=== PATIENT | male | born 1940 | race Caucasian/White ===

== ENCOUNTER 2019-07-14 00:41 | Inpatient (IN) ==
--- NOTE | 2019-07-01 08:18 | EKG Report ---
Test Performed on : 07/01/2019 08:03:10 AM Test Reason : PAT Blood Pressure : / mmHG Vent. Rate : 072 BPM Atrial Rate : 072 BPM P-R Int : 156 ms QRS Dur : 128 ms QT Int : 416 ms P-R-T Axes : 080 036 059 degrees QTc Int : 455 ms Sinus rhythm. with premature atrial complexes. Right bundle branch block Septal infarct , age undetermined Abnormal ECG When compared with ECG of 16-JUN-2015 10:09, premature atrial complexes. are now present Septal infarct is now present Confirmed by Stacia Metcalf MD ([id number]) on 07/01/2019 12:25:59 PM
[2019-07-01 08:37] LABS: URINE SOURCE CLEAN CATCH
[2019-07-01 09:03] LABS: BILIRUBIN URINE NEGATIVE (NEGATIVE); BLOOD URINE NEGATIVE (NEGATIVE); COLOR YELLOW; GLUCOSE URINE NEGATIVE (NEGATIVE); KETONE URINE NEGATIVE (NEGATIVE); LEUKOCYTES URINE NEGATIVE (NEGATIVE); NITRITE URINE NEGATIVE (NEGATIVE); PROTEIN URINE NEGATIVE (NEGATIVE); TURBIDITY URINE CLEAR (CLEAR); UROBILINOGEN URINE NORMAL (NORMAL)
[2019-07-01 09:05] LABS: BASO# 0.02 X1000 (0.0-0.2); BASO% 0.3 % (0.0-0.8); EOS# 0.12 X1000 (0.0-0.7); EOS% 1.6 % (0.0-10.0); HEMATOCRIT 44.2 % (42.0-52.0); HEMOGLOBIN 14.6 g/dL (14.0-18.0); LYMPH# 1.83 X1000 (1.2-3.4); LYMPH% 24.7 % (20.5-51.1); MCH 31.7 PG (27-31); MCV 95.9 FL (81-99); MONO# 0.42 X1000 (0.11-0.59); MONO% 5.7 % (1.7-9.3); MPV 10.8 FL (7.4-10.4); NEUT# 5.03 X1000 (1.4-6.5); NEUT% 67.7 % (42.2-75.2); PLT 167 X1000 (130-400); RBC 4.61 XMIL (4.7-6.1); RDW 12.4 % (11.5-14.5); WBC 7.42 X1000 (4.8-10.8)
[2019-07-01 09:06] LABS: UR EPITHELIAL CELLS <10 /HPF (<10); URINE BACTERIA NEGATIVE /HPF; URINE RBC <10 /HPF (<10); URINE WBC <10 /HPF (<10)
[2019-07-01 09:08] LABS: INR 0.98; PROTIME 13.1 Seconds (11.0-16.0)
[2019-07-01 09:09] LABS: PTT 31.3 Seconds (22.3-41.8)
[2019-07-01 09:20] LABS: AGAP 10; BUN 24 mg/dL (8-22); CALCIUM 9.5 mg/dL (8.8-10.2); CHLORIDE 100 mmol/L (98-107); COSMO 287; CREATININE 1.1 mg/dL (0.7-1.2); ESTIMATED GFR > 60; GLUCOSE 97 mg/dL (70-104); POTASSIUM 3.7 mmol/L (3.5-5.1); SODIUM 142 mmol/L (136-145); TCO2 32 mmol/L (25-35)
[2019-07-01 09:27] LABS: HEMOGLOBIN A1C 5.6 % (4.8-6.0)
[2019-07-14] MEDS ORDERED: PEPCID ONE (05:55)
[2019-07-14] MEDS ORDERED: COLACE ONE (05:55)
[2019-07-14] MEDS ORDERED: REGLAN ONE (05:55)
[2019-07-14] MEDS ORDERED: KEFZOL 1 GM/D5W 2 GM/100 ML IVPB ONE (05:56)
[2019-07-14] MEDS ORDERED: CELEBREX ONE (05:56)
[2019-07-14] MEDS ORDERED: LYRICA ONE (05:56)
[2019-07-14] MEDS ORDERED: LR 1,000 ML ONE (05:56)
[2019-07-14] MEDS ORDERED: DIPRIVAN 1% ONE (06:53)
[2019-07-14] MEDS ORDERED: XYLOCAINE-MPF 2% ONE (06:54)
[2019-07-14] MEDS ORDERED: ROBINUL ONE (06:54)
[2019-07-14] MEDS ORDERED: DURAMORPH ONE (07:02)
[2019-07-14] MEDS ORDERED: SODIUM CHLORIDE 0.9% ONE (07:02)
[2019-07-14] MEDS ORDERED: CYKLOKAPRON 1,000 MG/NS 1,000 MG/100 ML IVPB ONE (07:02)
[2019-07-14] MEDS ORDERED: MARCAINE 0.25% PF ONE (07:02)
[2019-07-14] MEDS ORDERED: TORADOL ONE ×2 (07:02→07:26)
[2019-07-14] MEDS ORDERED: NEOSPORIN G.U. IRRIGANT ONE (07:03)
[2019-07-14] MEDS ORDERED: EXPAREL 1.3% ONE (07:03)
[2019-07-14] MEDS ORDERED: OFIRMEV 1000 MG/ISOTONIC SOLN 1,000 MG/100 ML BOTTLE ONE (07:25)
[2019-07-14] MEDS ORDERED: KETAMINE ONE (07:25)
[2019-07-14] MEDS ORDERED: DECADRON ONE (07:25)
[2019-07-14] MEDS ORDERED: ZOFRAN ONE (07:26)
[2019-07-14] MEDS ORDERED: NEOSPORIN OINTMENT PACKET ONE (07:38)
[2019-07-14] MEDS ORDERED: VERSED ONE (08:05)
[2019-07-14] MEDS ORDERED: NS 1,000 ML ONE (09:11)
[2019-07-14 09:19] LABS: URINE SOURCE CATH
[2019-07-14 09:27] LABS: BILIRUBIN URINE NEGATIVE (NEGATIVE); BLOOD URINE NEGATIVE (NEGATIVE); COLOR YELLOW; GLUCOSE URINE NEGATIVE (NEGATIVE); KETONE URINE NEGATIVE (NEGATIVE); LEUKOCYTES URINE NEGATIVE (NEGATIVE); NITRITE URINE NEGATIVE (NEGATIVE); PH URINE 6.5; PROTEIN URINE TRACE mg/dL (NEGATIVE); SP GRAVITY URINE 1.018; TURBIDITY URINE CLEAR (CLEAR); UR EPITHELIAL CELLS >10 /HPF (<10); URINE BACTERIA NEGATIVE /HPF; URINE RBC <10 /HPF (<10); URINE WBC <10 /HPF (<10); UROBILINOGEN URINE NORMAL (NORMAL)
[2019-07-14] MEDS ORDERED: NS 1,000 ML IV SCH (10:00)
[2019-07-14] MEDS ORDERED: OXY IR PO PRN ×2 (10:00)
[2019-07-14] MEDS ORDERED: ZOFRAN ODT PO PRN (10:00)
[2019-07-14] MEDS ORDERED: MORPHINE IV PRN ×3 (10:00)
[2019-07-14] MEDS ORDERED: ZOFRAN IV PRN (10:00)
--- NOTE | 2019-07-14 10:09 | OPERATIVE NOTE ---
PROCEDURE DATE: 07/14/2019 PREOPERATIVE DIAGNOSIS: Degenerative joint disease left hip. POSTOPERATIVE DIAGNOSIS: Degenerative joint disease left hip. PROCEDURE PERFORMED: Left anterior hip replacement. SURGEON: Josi Lord MD. ASSISTANT SUPERINTENDENT: AYUSH Leroy. Mr. Jo was necessary for proper retraction and manipulation of the leg during the case. ANESTHESIA: Spinal. COMPLICATION: None. PROCEDURE IN DETAIL: A 78-year-old male presents for left hip replacement. Risks, benefits, and no guarantees were discussed and he is willing to proceed. He was taken to the operating room and satisfactory anesthesia obtained. He was placed on the [place] table and left hip prepped and draped in usual sterile fashion. A time-out was taken to confirm operative site, procedure, and patient. An anterior approach to the left hip was undertaken through a roughly 10 cm incision starting 1 cm distal and lateral to the anterior superior iliac spine and carried over the anterior thigh. Dissection was carried down through the skin to the fascia of the tensor fascia thi. The fascia of the tensor was released in line with the incision and blunt dissection along the inner membrane undertaken down to the anterior hip capsule. Cobra retractors were placed over the superior and inferior aspect of the femoral neck. A capsulotomy incision was made to expose the neck. The C-arm was used to make an AP pelvis to christine leg lengths prior to osteotomy of the femoral neck. Femoral neck osteotomy was made roughly 8 mm above the lesser trochanter and the femoral head removed. Sequential reaming of the acetabulum was undertaken. A small Cobra retractor was placed directly on acetabular bone to protect the femoral nerve with secure visibility on the bone only. The reamers were used to ream the acetabulum up to a 55 reamer. A DePuy [place] 56 outer diameter cup was impacted in the acetabulum in roughly 45 degrees of abduction and 15 degrees of anteversion with secure fixation. A 25 length screw was placed in the 12 o'clock position of the cup for additional security. A 36 mm inner diameter 0 degree polyethylene liner was then impacted into the cup. The liner cup interface and cup bone interface was checked and noted to be stable. The wound was then irrigated and traction released off the leg and the [place]ena table used to extend and externally rotate the hip to facilitate broaching of the proximal femur. Sequential broaching up to a size 5 DePuy active stem was undertaken with secure axial and rotational stability. The standard neck geometry 1.5 neck taper revealed good range of motion, stability and methodist of the leg lengths. The trial stem was removed and an active standard neck size 5 collared stem impacted into the proximal femur with secure axial and rotational stability. A 36 mm ceramic head with a 1.5 neck length was then undertaken and impacted onto the Muhammad taper. The hip was reduced. Final range of motion was assessed with no instability by externally rotating the leg up to 70 degrees and dropping the hip in extension to the floor. Afterwards, a posterior stability was checked by flexing the hip up and internally rotating it without any posterior instability. The wound was copiously irrigated with irrigant. The joint capsule was injected with Exparel for pain management and a Hemovac drain placed. The fascia of the tensor was closed with a running V-Loc suture, the subcutaneous with 2-0 Vicryl and the skin with skin eugene. Sterile dressings completed the closure. A drain was placed prior to complete closure for evacuation of any postop hematoma. He was then sterilely dressed and recovered from anesthesia and transferred to the recovery room in stable condition. No intraoperative complications were noted. Instrument count and sponge count was correct at the time of closure. cc: Augusto Lord MD
[2019-07-14] MEDS: ULTRAM PO SCH ×3 (11:09→21:37)
[2019-07-14] MEDS: TYLENOL PO SCH ×4 (11:09→21:37)
--- NOTE | 2019-07-14 15:13 | PROGRESS NOTE ---
DATE: 07/14/2019 Mr. Brady is seen status post total hip replacement. He is comfortable at the present time. His drain fell out while they were mobilizing him with therapy. There is no signs of active bleeding. He is doing well with therapy and already mobilized. He has good knee extension and flexion as well as ankle dorsi and plantar flexion. There is no focal motor or sensory deficits. Vital signs are stable. We will plan on continuing to mobilize him and discharge him when he is mobilizing independently. cc: Augusto Lord MD
[2019-07-14] MEDS ORDERED: CYKLOKAPRON 1,000 MG/NS 1,000 MG/100 ML IVPB IV ONE (16:00)
[2019-07-14] MEDS: KEFZOL 2 GM/D5W 2 GM/50 ML IVPB IV SCH (16:54)
[2019-07-14] MEDS ORDERED: DESYREL PO PRN (17:02)
[2019-07-14] MEDS ORDERED: MUCINEX PO PRN (17:02)
[2019-07-14] MEDS ORDERED: SYMBICORT 160/4.5 MICROGM INHALER INH PRN (17:02)
[2019-07-14] MEDS ORDERED: ZOCOR PO SCH (21:00)
[2019-07-14] MEDS ORDERED: CELEBREX PO SCH (21:00)
[2019-07-14] MEDS: NEURONTIN PO SCH (21:37)
[2019-07-14] MEDS: PERIDEX MT SCH (21:37)
[2019-07-14] MEDS: CELEBREX PO SCH (21:37)
[2019-07-14] MEDS: COLACE PO SCH (21:37)
[2019-07-15] MEDS ORDERED: KEFZOL 2 GM/D5W 2 GM/50 ML IVPB IV SCH (01:15)
[2019-07-15] MEDS: KEFZOL 2 GM/D5W 2 GM/50 ML IVPB IV SCH (01:41)
[2019-07-15 05:47] LABS: HEMATOCRIT 33.1 % (42.0-52.0); HEMOGLOBIN 11.1 g/dL (14.0-18.0)
[2019-07-15 06:05] LABS: CALCIUM 8.1 mg/dL (8.8-10.2); CREATININE 1.3 mg/dL (0.7-1.2); POTASSIUM 3.9 mmol/L (3.5-5.1)
--- NOTE | 2019-07-15 07:19 | ORTHOPAEDICS PROGRESS NOTE ---
DATE: 07/15/2019 Mr. Brady is seen today status post anterior hip replacement. He is afebrile with stable vital signs. He has been rather restless here in the hospital. He is alert and oriented x3 and pleasant. There are no signs of infection or DVT. Will plan on discharging him home today for outpatient followup and home health. He can return to our office in the interim for any worsening signs or symptoms. cc: Augusto Lord MD
[2019-07-15] MEDS: LOTENSIN PO SCH ×2 (07:58→08:28)
[2019-07-15] MEDS: LASIX PO SCH ×2 (07:58→08:27)
[2019-07-15] MEDS: KLOR-CON PO SCH ×2 (07:58→08:26)
[2019-07-15] MEDS: SINGULAIR PO SCH ×2 (07:58→08:27)
[2019-07-15] MEDS: TYLENOL PO SCH (07:59)
[2019-07-15] MEDS: NEURONTIN PO SCH (07:59)
[2019-07-15] MEDS: COLACE PO SCH (07:59)
[2019-07-15] MEDS: PERIDEX MT SCH (07:59)
[2019-07-15] MEDS: CELEBREX PO SCH (07:59)
[2019-07-15] MEDS: ULTRAM PO SCH (08:26)
[2019-07-15 08:41] VITALS: BP 108/54
[2019-07-15] MEDS ORDERED: PRILOSEC PO SCH (09:00)
[2019-07-15] MEDS ORDERED: PATIENT'S OWN MED PO SCH (09:00)
[2019-07-15] MEDS ORDERED: ASPIRIN PO SCH (09:00)
== END 2019-07-15 11:59 | disposition home health service (06) | DRG 470 ==
LOC: SURHOLD 00:41 → 4N 07:31
PROVIDERS: ADMIT Orthopaedic Surgery Adult Reconstructive Orthopaedic Surgery; ATTEND Orthopaedic Surgery Adult Reconstructive Orthopaedic Surgery

== ENCOUNTER 2019-07-20 13:39 | Inpatient (IN) ==
[2019-07-20] MEDS ORDERED: DILAUDID IV ONE (15:34)
[2019-07-20] MEDS ORDERED: ZOFRAN IV ONE (15:34)
[2019-07-20 15:46] LABS: BASO# 0.02 X1000 (0.0-0.2); BASO% 0.2 % (0.0-0.8); EOS# 0.33 X1000 (0.0-0.7); EOS% 3.6 % (0.0-10.0); HEMATOCRIT 32.7 % (42.0-52.0); IMM GRAN# 0.04 X1000 (0.0-0.04); IMM GRAN% 0.4 % (0.0-0.5); LYMPH# 1.59 X1000 (1.2-3.4); LYMPH% 17.4 % (20.5-51.1); MCH 31.7 PG (27-31); MCHC 33.6 g/dL (33-37); MCV 94.2 FL (81-99); MONO# 0.83 X1000 (0.11-0.59); MONO% 9.1 % (1.7-9.3); MPV 10.4 FL (7.4-10.4); NEUT# 6.32 X1000 (1.4-6.5); NEUT% 69.3 % (42.2-75.2); PLT 203 X1000 (130-400); RBC 3.47 XMIL (4.7-6.1); RDW 13.2 % (11.5-14.5); WBC 9.13 X1000 (4.8-10.8)
[2019-07-20 16:08] LABS: ALB/GLOB RATIO 1.3; ALBUMIN 3.3 g/dL (3.5-5.0); CALCIUM 8.8 mg/dL (8.8-10.2); CREATININE 1.2 mg/dL (0.7-1.2); POTASSIUM 5.1 mmol/L (3.5-5.1); TOTAL BILIRUBIN 0.34 mg/dL (0.20-1.00); TOTAL PROTEIN 5.8 g/dL (6.3-8.3)
[2019-07-20 16:17] LABS: INR 0.98; PROTIME 13.1 Seconds (11.0-16.0)
[2019-07-20] MEDS ORDERED: LOVENOX 1 MG/KG SUBQ ONE (16:17)
[2019-07-20 16:19] LABS: PTT 36.2 Seconds (22.3-41.8)
--- NOTE | 2019-07-20 16:20 | PROVIDER DOCUMENTATION ---
This chart was entered by Jeniffer Sargent Scribe, acting as scribe for Himanshu Oseguera MD. HPI-General Adult - General Chief Complaint: Post Op Complaint Stated Complaint: BLOOD CLOT - DR SENT Time Seen by Provider: 07/20/19 14:10 Source: patient Allergies/Adverse Reactions: Patient Allergies Allergy/AdvReac Type Severity Reaction Status Date / Time Penicillins Allergy ITCHING Verified 07/20/19 15:17 Home Medications: Home Medication List Medication Instructions Recorded Confirmed Last Taken Type Budesonide/Formoterol Inhaler 1 puff INH PRN PRN 06/16/15 07/20/19 07/20/19 History [Symbicort 160/4.5 Microgm Inhaler] Celecoxib [Celebrex] 200 mg PO DAILY 06/16/15 07/20/19 07/20/19 History Montelukast Sodium [Singulair] 10 mg PO DAILY 06/16/15 07/20/19 07/20/19 History Omeprazole 20 mg PO DAILY 06/16/15 07/20/19 07/20/19 History SIMVAstatin [Zocor] 40 mg PO QHS 06/16/15 07/20/19 07/19/19 History BENAZEpril [Lotensin] 20 mg PO DAILY 07/07/19 07/20/19 07/20/19 History Furosemide [Lasix] 20 mg PO DAILY 07/07/19 07/20/19 07/20/19 History Gabapentin 300 mg PO TID 07/07/19 07/20/19 07/20/19 History Guaifenesin E.r. [Mucinex] 1 dose PO PRN PRN 07/07/19 07/20/19 07/13/19 History Potassium Chloride [Klor-Con M10] 10 meq PO DAILY 07/07/19 07/20/19 07/20/19 History Trazodone [Desyrel] 50 mg PO PRN PRN 07/07/19 07/20/19 07/19/19 History Aspirin 325 mg PO DAILY tab 07/15/19 07/20/19 07/20/19 Rx Sulfamethoxazole/Trimethoprim 1 ea PO BID #14 tab 07/15/19 07/20/19 07/20/19 Rx [Bactrim Ds Tablet] Hydrocodone/Acetaminophen [[place] 0.5 ea PO Q4H PRN PRN 07/20/19 07/20/19 07/19/19 History 10-325 Tablet] - History of Present Illness -Gen Adult Nature of Presenting Problems: 78 yom c/o pt was sent from Dr. Lord's office due to blood clot in left leg. pt has left hip sx recently. pt c/o severe pain in leg. denies fever, chills and cp. Location of Pain/Injury: reports: lower extremity (left leg) Pain Radiation: reports: no radiation Severity: reports: mild Onset/Duration: reports: just prior to arrival Timing: reports: still present Context/Activities at Onset: reports: none Review of Systems - Adult - REVIEW OF SYSTEMS - ADULT Constitutional: reports: no symptoms reported. denies: chills, fever, fatique Eyes: reports: no symptoms reported Ears, Nose, Mouth & Throat: reports: no symptoms reported Cardiovascular: reports: no symptoms reported. denies: chest pain, edema, palpitations Respiratory: reports: no symptoms reported Gastrointestinal: reports: no symptoms reported Genitourinary: reports: no symptoms reported Musculoskeletal: reports: see HPI, bone pain (LLE pain- blood clot in leg). denies: back pain, muscle weakness, neck pain Integumentary: reports: no symptoms reported Neurological: reports: no symptoms reported Psychiatric: reports: no symptoms reported Endocrine: reports: no symptoms reported Hematologic/Lymphatic: reports: no symptoms reported Allergic/Immunologic: reports: no symptoms reported All Other Systems: Reviewed and Negative Past History - Adult - PAST MEDICAL HISTORY-ADULT Review of Records: reports: Old Records Reviewed, Nursing Assessment Review, Medications Reviewed, Social history reviewed & non-contributory. Major Childhood Illnesses: reports: denies history Cardiovascular: reports: HTN Respiratory: reports: denies history Gastrointestinal: reports: denies history Obstetrical/Gynecological: reports: denies history Genitourinary: reports: denies history Musculoskeletal: reports: denies history Neurological: reports: denies history Endocrine/Immune: reports: Lymphoma Other Conditions: reports: denies history - PRIOR SURGERIES/PROCEDURES Surgical/Procedure History: reports: indwelling device - IMMUNIZATION STATUS Childhood Immunizations: See Nurse Assessment Flu Vaccine: See Nurse Assessment - FAMILY HISTORY Family History: reviewed, not pertinent - SOCIAL HISTORY Smoking: cigarettes, greater than 1 pack/day Provider spent 3-5 mins advising pt. on dangers of tobacco.: Discussed manners to quit use, and f/u contacts for add'l counseling. Substance Use: none/never Physical Exam-General - PHYSICAL EXAM-ADULT Initial Vital Signs Reviewed: Yes - CONSTITUTIONAL General Appearance: appears well, alert, no apparent distress. negative: lethargic, slow to respond, obtunded - EYES Eyes: PERRL/EOMI, pink conjunctivae - HEAD, EARS, NOSE, MOUTH & THROAT HENMT: normocephalic/atraumatic, moist mucous membranes, normal ENT inspection - NECK Neck: non-tender, full range of motion, supple, normal inspection - CARDIOVASCULAR Cardiovascular: normal peripheral pulses, regular rate, rhythm - GASTROINTESTINAL (ABDOMEN) Abdominal Exam: normal bowel sounds, non tender, soft - LYMPHATIC Lymphatic: no adenopathy - MUSCULOSKELETAL Back Exam: normal inspection, no CVA tenderness, no vertebral tenderness Extremity: normal range of motion, no pedal edema, normal capillary refill, calf tenderness, erythema, swelling, tenderness (LLE thigh), other (warm LLE). negative: non-tender, normal inspection, no calf tenderness, deformity, pulse deficit, pedal edema Peripheral Pulses: radial (R): 2+, radial (L): 2+ - SKIN Integumentary: normal color, normal turgor, warm/dry - NEUROLOGIC Neurologic: grossly normal, no motor/sensory deficits - PSYCHIATRIC Psych/Mental Status: normal mood/affect, normal thought content, normal thought process, oriented x 3 Progress - PLAN OF CARE/RESULTS Progress/Plan/Lab Results: Vital Signs - 8 hr 07/20/19 13:59 Temperature 97.9 F Pulse Rate 74 Respiratory Rate 19 Blood Pressure 127/73 O2 Sat by Pulse Oximetry 97 Result Diagrams: 07/20/19 15:25 07/20/19 15:25 - ULTRASOUND (By Radiology) 1 US Study: Lower Ext Impression: Abnormal, See EMR Report (Lt Common femoral clot per industrial waste treatment technician.) - CONSULTS/PCP/HOSPITALIST Notification #1 *Consult/PCP/Hospitalist*: Flor GOVERNMENT GUARD for Hospitalist Time Discussed: 16:19 Consult Disposition: Will see in ED, Admit Departure - Departure Date of Disposition Decision: 07/20/19 Time of Disposition Decision: 16:00 DIAGNOSIS: DVT (deep venous thrombosis), Renal insufficiency Disposition: ADMITTED INPATIENT 09 Certified Medical Emergency: Emergent Condition: Fair Referrals and Follow-Ups: Suman Phelan MD [Primary Care Provider] - - Critical Care Note This patient required my direct & personal management of CC.: No Attestation - Physician/ DALTON Attestation Patient care was provided by Advanced Practice Provider:: No The physician spent face to face time with patient:: Yes Advanced Practice Provider documentation review:: Supervising physician onsite and consulted in the evaluation and care of this patient. The physician did have a face to face encounter with the patient. This chart was documented by the indicated scribe, (Jeniffer Sargent Scribe) and accurately reflects the services I performed and decisions made by me, Himanshu Oseguera MD, as attested by the provider's signature.
[2019-07-20] MEDS ORDERED: LOVENOX SUBQ ONE (16:30)
[2019-07-20] MEDS ORDERED: NICODERM PATCH TD PRN (17:13)
[2019-07-20] MEDS ORDERED: SYMBICORT 160/4.5 MICROGM INHALER INH PRN (17:46)
[2019-07-20] MEDS ORDERED: NORCO-7.5 PO PRN (17:46)
[2019-07-20] MEDS ORDERED: TYLENOL PO PRN (17:46)
[2019-07-20] MEDS ORDERED: DESYREL PO PRN (17:46)
[2019-07-20] MEDS ORDERED: MUCINEX PO PRN (17:46)
[2019-07-20] MEDS ORDERED: ZOFRAN IV PRN (17:46)
[2019-07-20] MEDS ORDERED: ZOCOR PO SCH (21:00)
--- NOTE | 2019-07-20 21:00 | HISTORY AND PHYSICAL ---
CHIEF COMPLAINT: Left calf and thigh pain. HISTORY OF PRESENT ILLNESS: This is a 78-year-old gentleman who had a recent procedure done per Dr. Lord. I think he had left hip replacement from what I understand. This was on 07/14/2019. He was discharged on 07/15/2019. I think he was discharged on high dose aspirin. He states over the last 2 days that he has had increasing pain and swelling. He had an outpatient ultrasound today that showed a DVT, and he was admitted for treatment. I do not have the report. It has not been read yet, but per preliminary, he has a DVT in his left lower extremity common femoral. He has pain. In any case, he will be admitted for treatment. He denies any chest pain or shortness of breath, but multiple times while he was in the ER, he did develop some relative hypoxia. PAST MEDICAL HISTORY: 1. COPD, not on home oxygen. 2. Non-Hodgkin lymphoma, which he feels is related to Humira, which he took for the #3 problem. 3. Rheumatoid arthritis. 4. Hypertension. He denies any cardiac disease. 5. Neuropathy. 6. Dyslipidemia, based on his medication. PAST SURGICAL HISTORY: 1. He has had a total knee arthroplasty. 2. Back and neck surgery. 3. Left carpal tunnel release. SOCIAL HISTORY: He is a pack-a-day smoker. He has done that for a long time, at least 50 years, possibly more. He does not want to quit. ALLERGIES: Penicillin. MEDICATIONS: 1. Zocor 40 at bedtime. 2. Celebrex 200 daily. 3. Trazodone p.r.n. 4. Gabapentin 300 t.i.d. 5. Klor-Con 10 daily. 6. Lasix 20 daily. 7. Lotensin 20 daily. 8. Mucinex p.r.n. 9. [place] q.4. 10. Prilosec 20. 11. Singulair 10. 12. Symbicort p.r.n. 13. Aspirin 325 daily. 14. Bactrim. REVIEW OF SYSTEMS: Again, no chest pain, no shortness of breath above baseline. Otherwise negative times a 10 point review of systems. PHYSICAL EXAMINATION: VITAL SIGNS: Blood pressure 141/56, heart rate 75, respiratory rate 23, temperature was 97.9 degrees. GENERAL: A well-developed male in no acute distress. HEAD: Normocephalic, atraumatic. EYES: Pupils equal, round, and reactive to light. Extraocular movements were intact. EARS, NOSE, THROAT: He had moist mucous membranes. NECK: Supple. CARDIOVASCULAR: Regular rate and rhythm. PULMONARY: Bilateral breath sounds, clear to auscultation. GI: Soft, nontender, and nondistended. Bowel sounds were positive. EXTREMITIES: No clubbing or cyanosis. LYMPHATIC: No peripheral edema. NEUROLOGICAL: Exam was nonfocal. LABORATORY DATA: White count 9, hemoglobin and hematocrit 11 platelets 203,000. Everything else looked okay. PROBLEM LIST: A 78-year-old male presenting with deep venous thrombosis post orthopedic procedure. 1. Deep venous thrombosis, left lower extremity, common femoral. Because of his relative hypoxia, I think I am going to order a CTA, although he is asymptomatic, but just to rule out. We will initiate Eliquis at high dose, which will be 10 mg for a week. 2. Recent hip replacement. He is concerned because his wound feels a little bit irritated to him. He does not have any purulence. There is a little bit of erythema. I am not sure if it may just be some bruising. We obviously will get Dr. Lord to inspect it while he is here. 3. Anemia, which is to be predicted. We will continue to monitor his hemoglobin and hematocrit, especially while he is on anticoagulants. 4. Chronic obstructive pulmonary disease. We will continue his regular medications and follow. 5. I do not think we need hypercoagulable workup considering it is in the setting of an orthopedic procedure, and he has had a recent one. He has a history of non-Hodgkin's, but apparently that is in remission. cc: MD Suman Guerrero MD Dr. Randall Riehl
[2019-07-20] MEDS: SEPTRA DS PO SCH (21:36)
[2019-07-21] MEDS ORDERED: ELIQUIS PO SCH (05:00)
[2019-07-21 06:23] LABS: BASO# 0.03 X1000 (0.0-0.2); BASO% 0.5 % (0.0-0.8); EOS# 0.23 X1000 (0.0-0.7); EOS% 3.8 % (0.0-10.0); HEMATOCRIT 30.2 % (42.0-52.0); IMM GRAN# 0.02 X1000 (0.0-0.04); IMM GRAN% 0.3 % (0.0-0.5); LYMPH# 1.01 X1000 (1.2-3.4); LYMPH% 16.6 % (20.5-51.1); MCH 31.5 PG (27-31); MCHC 33.1 g/dL (33-37); MCV 95.3 FL (81-99); MONO# 0.47 X1000 (0.11-0.59); MONO% 7.7 % (1.7-9.3); NEUT# 4.32 X1000 (1.4-6.5); NEUT% 71.1 % (42.2-75.2); PLT 193 X1000 (130-400); RBC 3.17 XMIL (4.7-6.1); WBC 6.08 X1000 (4.8-10.8)
[2019-07-21 06:48] LABS: AGAP 12; ALB/GLOB RATIO 1.2; ALBUMIN 2.8 g/dL (3.5-5.0); ALKALINE PHOSPHATASE 74 U/L (32-122); BUN 21 mg/dL (8-22); CALCIUM 8.7 mg/dL (8.8-10.2); CHLORIDE 102 mmol/L (98-107); COSMO 279; CREATININE 1.1 mg/dL (0.7-1.2); ESTIMATED GFR > 60; GLUCOSE 80 mg/dL (70-104); GOT 25 U/L (10-34); GPT 12 U/L (10-44); POTASSIUM 4.5 mmol/L (3.5-5.1); SODIUM 139 mmol/L (136-145); TCO2 25 mmol/L (25-35); TOTAL BILIRUBIN 0.47 mg/dL (0.20-1.00); TOTAL PROTEIN 5.1 g/dL (6.3-8.3)
[2019-07-21] MEDS ORDERED: PRILOSEC PO SCH (07:00)
--- NOTE | 2019-07-21 07:08 | Diag Imaging Result Doc PS360 ---
EXAM: CT ANGIOGRM PULMONARY ARTERIES 07/20/2019 HISTORY: chest pain TECHNIQUE: This exam was performed using automated exposure control, adjustment of mA or kV according to patient size, and/or use of iterative reconstruction technique. COMMENT: Contrast opacification of the peripheral pulmonary arterial branches is somewhat suboptimal. There is no evidence of filling defects. 3-D MIPS were performed. The aorta is normal in caliber without evidence of dissection. There are some atherosclerotic calcifications including calcifications in the left anterior descending artery. There is a tiny amount of fluid in the pericardium. There is no evidence of pleural effusions. There are some calcified granulomata. No evidence of acute pulmonary parenchymal disease is present. There is a noncalcified nodule adjacent to the apical pleura in the right upper lobe measuring 6 mm in diameter. There is a hiatal hernia. There are cysts in the visualized portions of both kidneys. There is an 8 mm stone in the neck of the gallbladder. There is no evidence of cholecystitis. There is some questionable thickening of the mucosa in the gastric antrum. There is no evidence of acute disease in the visualized portion of the abdomen otherwise. There is severe degenerative change in the left shoulder, otherwise the regional skeleton appears to be intact. IMPRESSION: 1. No evidence of pulmonary emboli. 2. Coronary atherosclerosis. 3. Nonspecific pulmonary nodule in the right apex. Advise six month follow-up. 4. Cholelithiasis and questionable antral gastritis. Electronically signed by Jarvis Marr 07/21/2019 7:06 AM
[2019-07-21] MEDS ORDERED: SINGULAIR PO SCH (09:00)
[2019-07-21] MEDS ORDERED: KLOR-CON PO SCH (09:00)
[2019-07-21] MEDS ORDERED: LASIX PO SCH (09:00)
[2019-07-21] MEDS ORDERED: CELEBREX PO SCH (09:00)
[2019-07-21] MEDS ORDERED: LOTENSIN PO SCH (09:00)
[2019-07-21] MEDS: SEPTRA DS PO SCH (11:33)
[2019-07-21] MEDS: NEURONTIN PO SCH ×2 (11:33→13:40)
[2019-07-21 12:14] VITALS: BP 135/60
[2019-07-21] MEDS ORDERED: ROBAXIN PO SCH ×2 (14:45)
--- NOTE | 2019-07-21 14:58 | ORTHOPAEDICS CONSULTATION ---
DATE: 07/21/2019 CHIEF COMPLAINT: Left lower extremity pain and thigh pain. HISTORY OF PRESENT ILLNESS: This is a 78-year-old male who recently had a left total hip replacement by Dr. Lord on 07/14/2019. He was discharged on 07/15/2019 and then started developing some pain over the next couple days in the left lower extremity. He reported some swelling that occurred in the area as well. He states he also had some muscle cramps. He was discharged on aspirin daily for DVT prophylaxis. He came to the emergency department and was evaluated for a blood clot. They did an ultrasound and found a DVT in the left common femoral vein. Orthopedics was consulted to come see the patient. PAST MEDICAL HISTORY: The patient has COPD, non-Hodgkin's lymphoma in remission, RA, hypertension, neuropathy, dyslipidemia. PAST SURGICAL HISTORY: He has had a total knee arthroplasty and also back surgery with a carpal tunnel release. SOCIAL HISTORY: Patient states he does smoke a pack a day. He denies alcohol or drug use. ALLERGIES: Patient is allergic to penicillin. MEDICATIONS: Zocor 40 mg daily, Celebrex 200 mg daily, trazodone 50 mg daily, gabapentin 300 mg t.i.d., Klor-Con 10 mEq daily, Lasix 20 mg daily, Lotensin 20 mg daily, Mucinex as needed for chest congestion, [place] 10 mg q.4 p.r.n. pain, Prilosec 20 mg daily, Singulair 10 mg daily, Symbicort inhaler 2 puffs daily, aspirin 325 daily, and Bactrim b.i.d. REVIEW OF SYSTEMS: A 12-point review of systems was performed and all pertinent positives listed in the HPI. PHYSICAL EXAMINATION: Vital Signs: Temperature 98.8 degrees, pulse rate 87, respiratory rate 14, blood pressure 135/60, oxygen is 98% on room air. HEENT: Head is atraumatic, normocephalic. Eyes are equal, round, reactive. Neck: Supple. Cardiovascular: Regular rate and rhythm. Chest: Equal rise and fall. Abdomen: Soft, nontender. Extremities: Left lower extremity: There is swelling notable to the left lower extremity. Eugene are intact. There is minimal erythema along the eugene of the anterior hip incision. There is no purulent drainage. There is minimal warmth. There is good range of motion to the left hip. LABS: White blood cells 6.08, red blood cells 3.17, hemoglobin 10.0, hematocrit 30.2, platelets 193,000. INR 0.98. Sodium 139, potassium 4.5, chloride 102, BUN 21, creatinine 1.1, glucose 80. Pulmonary arteriogram shows no evidence of pulmonary emboli. It does show evidence of coronary atherosclerosis and a nonspecific pulmonary nodule in the right apex. ASSESSMENT: Deep vein thrombosis, blood clot, left common femoral vein, post left total hip arthroplasty. PLAN: At this point from an orthopedic standpoint, patient can go home. The hospitalist will discharge patient on Eliquis. He is to continue that and see us in clinic in roughly 1 week to have his eugene removed from his left hip. He was told to call us with any questions or concerns that he may have at this time. Family and patient understand the risk of DVT, blood clots, and felt ready to be discharged at this time. Dictated by AYUSH Leroy for Augusto Lord MD cc: AYUSH Leroy MD
--- NOTE | 2019-07-22 07:25 | DISCHARGE SUMMARY ---
ADMISSION DATE: 07/20/2019 DISCHARGE DATE: 07/21/2019 DISCHARGE DIAGNOSES: 1. Deep vein thrombosis of the left common femoral vein, under treatment. 2. Recent hip replacement. 3. Anemia of chronic disease. 4. Chronic obstructive pulmonary disease, not in exacerbation. CONSULTATIONS: Dr. Lord from orthopedics. PROCEDURES: Pulmonary arteriogram did not show any evidence of pulmonary emboli. Coronary arteriosclerosis, nonspecific pulmonary nodule in the right apex, cholelithiasis and questionable antral gastritis. HOSPITAL COURSE: In brief, this patient is a 78-year-old male who had recent procedure done by Dr. Lord, hip replacement. He was discharged on high-dose aspirin, and he reports that he has increased pain and swelling, so he decided to come to the emergency department. Apparently, he was told that he had a DVT in the left lower extremity common femoral. For unknown reasons, ER decided to call for admission for this patient. Apparently, the patient had some hypoxia, so a CT angiogram of the chest was ordered, which should have been ordered by ER physician. It did not reveal any pulmonary embolism. So at this time the patient is going to be discharged in stable condition with oral anticoagulation medication, in this case it is going to be Eliquis. The patient is going to be discharged in stable condition. Patient has been evaluated by Dr. Lord here in the hospital and everything looks okay, so he is being released now. DISCHARGE PHYSICAL EXAMINATION: Vital Signs: Temperature 98.8 degrees, heart rate 84, respiratory rate 14, blood pressure 135/60, and O2 saturation 98% on room air. General: On examination, this is a 78-year-old male, lying in bed, in no acute distress. Cardiovascular: S1, S2 heard. No murmurs, gallops, or rubs. Regular rate and rhythm. Respiratory: Clear bilaterally to auscultation. No work of breathing or using accessory muscles. Abdomen: Soft, nontender to palpation. Bowel sounds present. No organomegaly. Extremities: No clubbing, cyanosis, or edema. Peripheral pulses present in both legs. Neurological: The patient is alert and oriented x3. Moves 4 extremities. DISCHARGE DISPOSITION: Home to self-care. DISCHARGE MEDICATIONS: 1. Eliquis 2 tablets daily p.o. b.i.d. for 1 week and then 1 tablet p.o. b.i.d. continued. 2. Methocarbamol 750 mg p.o. b.i.d. as needed. 3. Simvastatin 40 mg 1 tablet p.o. every night at bedtime. 4. Celebrex 200 mg 1 tablet p.o. daily. 5. Symbicort 160/4.5 mg 1.5 inhalation twice daily. 6. Omeprazole 20 mg 1 tablet p.o. daily. 7. Singular 10 mg 1 tablet p.o. daily. 8. Benazepril 20 mg 1 tablet p.o. daily. 9. Furosemide 20 mg 1 tablet p.o. daily. 10. Gabapentin 300 mg 1 tablet p.o. 2 times per day. 11. Klor-Con 10 mEq 1 tablet p.o. daily. 12. Trazodone 150 mg p.o. at bedtime. 13. Bactrim 1 tablet p.o. b.i.d. 14. [place] 10 one tablet p.o. every 4 hours as needed for pain. TIME SPENT: Time discharging this patient was 32 minutes. cc: Julián Zavala MD
== END 2019-07-21 15:52 | disposition home health service (06) | DRG 300 ==
LOC: ED 13:39 → 4N 17:22 → SUATTDRO 17:22
PROVIDERS: ATTEND Internal Medicine